=== PATIENT | male | born 1995 | race Caucasian/White ===

== ENCOUNTER 2018-03-15 22:45 | Emergency (ER) | payer MEDICAID, OTHER ==
[2018-03-15] MEDS ORDERED: Sodium Chloride 0.9% 1000 ML 1,000 ML IV STA (23:06)
[2018-03-15] MEDS ORDERED: Zofran 4 MG/2 ML VIAL IV ONE (23:06)
--- NOTE | 2018-03-15 23:06 | ERPHSYRPT ---
- History of Present Illness Time Seen by Provider: 03/15/18 23:02 Source: patient, EMS, police Exam Limitations: intoxication Physician History: The patient is a 22-year-old male brought in by ambulance accompanied by police officers where he was found in his bed grandmother's house unresponsive facedown on the floor. The officer did a sternal rub and was able to wake up the patient and asked questions. The patient told them he took numerous Xanax tablets that he found in his grandmother's house. He was not trying to kill himself. He just wanted to get high. Timing/Duration: today, gradual onset, worse Severity: moderate Modifying Factors: Improves With: medication (xanax) Associated Symptoms: other (intoxication) Allergies/Adverse Reactions: No Known Drug Allergies Allergy (Unverified 03/16/18 00:35) Home Medications: No Reportable Medications [No Reported Medications] 03/16/18 [History] - Review of Systems Constitutional: Other (intoxication) Eyes: No Symptoms Ears, Nose, & Throat: No Symptoms Respiratory: No Cough, No Dyspnea Cardiac: No Chest Pain, No Edema, No Syncope Abdominal/Gastrointestinal: No Abdominal Pain, No Nausea, No Vomiting, No Diarrhea Genitourinary Symptoms: No Dysuria Musculoskeletal: No Back Pain, No Neck Pain Skin: No Rash Neurological: No Dizziness, No Focal Weakness, No Sensory Changes Psychological: Drug Abuse Endocrine: No Symptoms Hematologic/Lymphatic: No Symptoms Immunological/Allergic: No Symptoms All Other Systems: Reviewed and Negative - Nursing Vital Signs Nursing Vital Signs: Initial Vital Signs Temperature 98.0 F 03/15/18 23:10 Pulse Rate 71 03/15/18 23:10 Respiratory Rate 22 03/15/18 23:10 Blood Pressure 115/66 03/15/18 23:10 O2 Sat by Pulse Oximetry 96 03/15/18 23:10 Pain Scale Pain Intensity 0 - Physical Exam General Appearance: lethargy Eye Exam: PERRL/EOMI, eyes nml inspection Ears, Nose, Throat Exam: normal ENT inspection, TMs normal, pharynx normal, moist mucous membranes Neck Exam: normal inspection, non-tender, supple, full range of motion Respiratory Exam: normal breath sounds, lungs clear, No respiratory distress Cardiovascular Exam: regular rate/rhythm, normal heart sounds, normal peripheral pulses Gastrointestinal/Abdomen Exam: soft, normal bowel sounds, No tenderness, No mass Rectal Exam: not done Back Exam: normal inspection, normal range of motion, No CVA tenderness, No vertebral tenderness Extremity Exam: normal inspection, normal range of motion, pelvis stable Neurologic Exam: intoxicated appearance (I was able to awaken the patient with noxious stimulus to his chin. Was slurred speech she told me that he took medicines from his grandmother. He has no complaints. He says he is very sleepy.) Skin Exam: normal color, warm, dry, No rash Lymphatic Exam: No adenopathy SpO2 Interpretation: normal O2 Delivery: Room Air - CT Exams Head CT Interpretation: Negative, Tele-radiologist Report (per Dr Santos) Ordered Tests: Active Orders 24 hr Category Date Time Status Cath for Specimen-Straight STAT Care 03/15/18 23:07 Active EKG-ER Only STAT Care 03/15/18 23:06 Active IV Insertion STAT Care 03/15/18 23:06 Active HEAD WITHOUT CONTRAST [CT] Stat Exams 03/15/18 23:08 Taken CBC W DIFF Stat Lab 03/15/18 23:47 Completed CMP Stat Lab 03/15/18 23:47 Completed Lactic Acid Stat Lab 03/15/18 23:45 Completed Manual Differential NC Stat Lab 03/15/18 23:47 Completed TROPONIN Q3H Lab 03/15/18 23:47 Completed TROPONIN Q3H Lab 03/16/18 02:15 Ordered TROPONIN Q3H Lab 03/16/18 05:15 Ordered TROPONIN Q3H Lab 03/16/18 08:15 Ordered TROPONIN Q3H Lab 03/16/18 11:15 Ordered UA W/RFX UR CULTURE Stat Lab 03/16/18 01:22 Completed Urine Triage Profile Stat Lab 03/16/18 01:22 Completed Medication Summary Discontinued Medications Generic Name Dose Route Start Last Admin Trade Name Freq PRN Reason Stop Dose Admin Sodium Chloride 1,000 mls @ 999 mls/hr 03/15/18 23:06 03/16/18 00:21 Sodium Chloride 0.9% 1000 Ml IV 03/16/18 00:06 999 mls/hr .Q1H1M STA Administration Sodium Chloride Confirm 03/16/18 00:19 Sodium Chloride 0.9% 1000 Ml Administered 03/16/18 00:20 Dose 1,000 mls @ ud .ROUTE .STK-MED ONE Ondansetron HCl 4 mg 03/15/18 23:06 03/16/18 00:23 Zofran 4 Mg/2 Ml Vial IV 03/15/18 23:07 4 mg STAT ONE Administration Ondansetron HCl Confirm 03/16/18 00:19 Zofran 4 Mg/2 Ml Vial Administered 03/16/18 00:20 Dose 4 mg .ROUTE .STK-MED ONE Lab/Rad Data: Laboratory Result Diagrams 03/15/18 23:47 03/15/18 23:47 Laboratory Results 03/16/18 03/16/18 03/15/18 Range/Units 01:22 01:22 23:47 WBC (4.0-10.5) K/mm3 RBC (4.1-5.6) M/mm3 Hgb (12.5-18.0) gm/dl Hct (42-50) % MCV (78-100) fl MCH (26-32) pg MCHC (32-36) g/dl RDW (11.5-14.0) % Plt Count (150-450) K/mm3 MPV (6-9.5) fl Absolute Granulocytes (1.4-6.9) Segmented Neutrophils (36.-66.) % Band Neutrophils (0.0-2.0) % Lymphocytes (Manual) (24-44) % Monocytes (Manual) (0.0-12.0) % Basophils (Manual) (0.0-1.0) % Atypical Lymphocytes % Platelet Estimate (NORMAL) RBC Morphology Sodium (137-145) mmol/L Potassium (3.5-5.1) mmol/L Chloride (98-107) mmol/L Carbon Dioxide (22-30) mmol/L Anion Gap (5-15) MEQ/L BUN (9-20) mg/dL Creatinine (0.66-1.25) mg/dL Estimated GFR ML/MIN Glucose (74-106) mg/dL Lactic Acid (0.4-2.0) Calcium (8.4-10.2) mg/dL Total Bilirubin (0.2-1.3) mg/dL AST (17-59) U/L ALT (0-50) U/L Alkaline Phosphatase (38-126) U/L Troponin I < 0.012 (0.000-0.034) ng/mL Serum Total Protein (6.3-8.2) g/dL Albumin (3.5-5.0) g/dL Urine Color YELLOW (YELLOW) Urine Appearance CLEAR (CLEAR) Urine pH 6.0 (5-6) Ur Specific [place] 1.020 (1.005-1.025) Urine Protein NEGATIVE (Negative) Urine Ketones NEGATIVE (NEGATIVE) Urine Blood NEGATIVE (0-5) Ramin/ul Urine Nitrite NEGATIVE (NEGATIVE) Urine Bilirubin NEGATIVE (NEGATIVE) Urine Urobilinogen 2 (0-1) mg/dL Ur Leukocyte Esterase NEGATIVE (NEGATIVE) Urine WBC (Auto) NONE (0-5) /HPF Urine RBC (Auto) NONE (0-2) /HPF U Epithel Cells (Auto) NONE (FEW) /HPF Urine Bacteria (Auto) NONE SEEN (NEGATIVE) /HPF Urine Mucus (Auto) SLIGHT (NEGATIVE) /HPF Urine Culture Reflexed NO (NO) Urine Glucose NEGATIVE (NEGATIVE) mg/dL Urine Opiates Level NEGATIVE (NEGATIVE) Ur Methadone NEGATIVE (NEGATIVE) Urine Barbiturates NEGATIVE (NEGATIVE) Ur Phencyclidine (PCP) NEGATIVE (NEGATIVE) Urine Amphetamine NEGATIVE (NEGATIVE) U Benzodiazepine Level NEGATIVE (NEGATIVE) Urine Cocaine NEGATIVE (NEGATIVE) Urine Marijuana (THC) POSITIVE (NEGATIVE) 03/15/18 03/15/18 03/15/18 Range/Units 23:47 23:47 23:45 WBC 9.9 (4.0-10.5) K/mm3 RBC 4.59 (4.1-5.6) M/mm3 Hgb 14.2 (12.5-18.0) gm/dl Hct 41.5 L (42-50) % MCV 90.4 (78-100) fl MCH 30.9 (26-32) pg MCHC 34.2 (32-36) g/dl RDW 12.5 (11.5-14.0) % Plt Count 316 (150-450) K/mm3 MPV 10.4 H (6-9.5) fl Absolute Granulocytes 6.79 (1.4-6.9) Segmented Neutrophils 72 H (36.-66.) % Band Neutrophils 2 (0.0-2.0) % Lymphocytes (Manual) 8 L (24-44) % Monocytes (Manual) 5 (0.0-12.0) % Basophils (Manual) 2 H (0.0-1.0) % Atypical Lymphocytes 11 % Platelet Estimate NORMAL (NORMAL) RBC Morphology NORMAL Sodium 141 (137-145) mmol/L Potassium 4.1 (3.5-5.1) mmol/L Chloride 106 (98-107) mmol/L Carbon Dioxide 27 (22-30) mmol/L Anion Gap 11.7 (5-15) MEQ/L BUN 20 (9-20) mg/dL Creatinine 1.01 (0.66-1.25) mg/dL Estimated GFR > 60.0 ML/MIN Glucose 94 (74-106) mg/dL Lactic Acid 0.6 (0.4-2.0) Calcium 9.4 (8.4-10.2) mg/dL Total Bilirubin 0.50 (0.2-1.3) mg/dL AST 31 (17-59) U/L ALT 44 (0-50) U/L Alkaline Phosphatase 71 (38-126) U/L Troponin I (0.000-0.034) ng/mL Serum Total Protein 7.2 (6.3-8.2) g/dL Albumin 4.3 (3.5-5.0) g/dL Urine Color (YELLOW) Urine Appearance (CLEAR) Urine pH (5-6) Ur Specific [place] (1.005-1.025) Urine Protein (Negative) Urine Ketones (NEGATIVE) Urine Blood (0-5) Ramin/ul Urine Nitrite (NEGATIVE) Urine Bilirubin (NEGATIVE) Urine Urobilinogen (0-1) mg/dL Ur Leukocyte Esterase (NEGATIVE) Urine WBC (Auto) (0-5) /HPF Urine RBC (Auto) (0-2) /HPF U Epithel Cells (Auto) (FEW) /HPF Urine Bacteria (Auto) (NEGATIVE) /HPF Urine Mucus (Auto) (NEGATIVE) /HPF Urine Culture Reflexed (NO) Urine Glucose (NEGATIVE) mg/dL Urine Opiates Level (NEGATIVE) Ur Methadone (NEGATIVE) Urine Barbiturates (NEGATIVE) Ur Phencyclidine (PCP) (NEGATIVE) Urine Amphetamine (NEGATIVE) U Benzodiazepine Level (NEGATIVE) Urine Cocaine (NEGATIVE) Urine Marijuana (THC) (NEGATIVE) - Progress Progress: improved Progress Note: 03/16/18 02:18 After little more than 3 hours, the patient has regained his senses. He is talking fluently and coherently. At times he is angry. He states that he found an empty package of cigarettes with a pill in it. He states he took the pill. He thought it was Xanax. His drug screen of his urine shows only marijuana no benzodiazepines. He wishes now to go home. He's been stable now for the last 30 minutes. He will call his girlfriend to come pick him up. Counseled pt/family regarding: drug and/or alcohol abuse, diagnosis - Departure Time of Disposition: 02:19 Departure Disposition: Home Clinical Impression: Drug abuse Condition: Stable Critical Care Time: No Additional Instructions: You have a drug abuse problem. Follow-up with your primary medical doctor.
[2018-03-15 23:51] LABS: Granulocyte Absolute (ANC) 6.79 (1.4-6.9); Hematocrit 41.5 % (42-50); Hemoglobin 14.2 gm/dl (12.5-18.0); Mean Cell Volume 90.4 fl (78-100); Mean Corpuscular Hemoglobin 30.9 pg (26-32); Mean Corpuscular Hgb Concent. 34.2 g/dl (32-36); Mean Platelet Volume 10.4 fl (6-9.5); Platelet Count 316 K/mm3 (150-450); Red Blood Count 4.59 M/mm3 (4.1-5.6); Red Cell Distribution Width 12.5 % (11.5-14.0); White Blood Count 9.9 K/mm3 (4.0-10.5)
[2018-03-16 00:08] LABS: ALBUMIN 4.3 g/dL (3.5-5.0); ALKALINE PHOSPHATASE 71 U/L (38-126); ANION GAP 11.7 MEQ/L (5-15); BLOOD UREA NITROGEN 20 mg/dL (9-20); CHLORIDE 106 mmol/L (98-107); Calcium 9.4 mg/dL (8.4-10.2); Carbon Dioxide 27 mmol/L (22-30); Creatinine 1 1.01 mg/dL (0.66-1.25); Glucose 94 mg/dL (74-106); Potassium 4.1 mmol/L (3.5-5.1); SGOT/AST 31 U/L (17-59); SGPT/ALT 44 U/L (0-50); SODIUM 141 mmol/L (137-145); Total Protein 7.2 g/dL (6.3-8.2)
[2018-03-16] MEDS ORDERED: Sodium Chloride 0.9% 1000 ML 1,000 ML ONE (00:19)
[2018-03-16] MEDS ORDERED: Zofran 4 MG/2 ML VIAL ONE (00:19)
[2018-03-16 00:22] LABS: ATYPICAL LYMPHS 11 %; BAND 2 % (0.0-2.0); Basophil 2 % (0.0-1.0); Lymphocytes 8 % (24-44); Monocyte 5 % (0.0-12.0); Neutrophils 72 % (36.-66.); Platelet Estimate NORMAL (NORMAL); Total Cells Counted 100
[2018-03-16 01:27] LABS: Appearance CLEAR (CLEAR); Bilirubin NEGATIVE (NEGATIVE); Blood NEGATIVE Ery/ul (0-5); Glucose NEGATIVE (NEGATIVE); Ketones NEGATIVE (NEGATIVE); Leukocyte Esterase NEGATIVE (NEGATIVE); Mucus SLIGHT /HPF (NEGATIVE); Nitrite NEGATIVE (NEGATIVE); Protein,Urine Dip NEGATIVE (Negative); Urobilinogen 2 mg/dL (0-1)
[2018-03-16 01:29] LABS: Bacteria NONE SEEN /HPF (NEGATIVE)
[2018-03-16 01:43] LABS: Amphetamine,Urine NEGATIVE (NEGATIVE); Barbiturate,Urine NEGATIVE (NEGATIVE); Benzodiazepine,Urine NEGATIVE (NEGATIVE); Cocaine,Urine NEGATIVE (NEGATIVE); Methadone,Urine NEGATIVE (NEGATIVE); Opiate,Urine NEGATIVE (NEGATIVE); PCP,Urine NEGATIVE (NEGATIVE); THC,Urine POSITIVE (NEGATIVE)
[2018-03-16 02:15] VITALS: BP 136/73; PULSE 100; O2SAT 99
--- NOTE | 2018-03-16 09:20 | XRAY ---
Indication: Found unresponsive. Multiple contiguous axial images obtained through the head without contrast. Comparison: None Normal appearing brain parenchyma, ventricles, and bony calvarium. Visualized paranasal sinuses and mastoid air cells are clear. Impression: Normal CT head without contrast exam. Comment: Preliminary interpretation was made by [facility]. No discrepancy. CT DI 51.85
== END 2018-03-16 02:46 | disposition home or self-care (01) ==
LOC: ED 22:45
DX: F13.10 Sedative, hypnotic or anxiolytic abuse, uncomplicated (principal); F12.10 Cannabis abuse, uncomplicated
CPT/HCPCS: 36000; 36415; 70450; 80053; 80307; 81001; 83605; 84484; 85025; 93005; 96360; 96374; 99284; P9612; J2405